=== PATIENT | female | born 2000 | race African-American/Black ===

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

== ENCOUNTER 2020-04-03 18:27 | Emergency (ER) | payer OTHER ==
--- NOTE | 2020-04-03 18:31 | PDOC ---
Rapid Medical Evaluation Time Seen by Provider: 04/03/20 18:30 Medical Evaluation: Allergies Allergy/AdvReac Type Severity Reaction Status Date / Time No Known Allergies Allergy Verified 09/26/19 16:52 04/03/20 18:30 Pt presents for a skin infection to the R side of her neck. Pt reports getting a new tattoo on Thursday. Exam: hives present under the tattoo, streaking noted distally. Afebrile Orders: defer to provider Pt to proceed to the ER for further evaluation Discharge Disposition - Diagnosis Skin infection - Referrals - Patient Instructions - Post Discharge Activity
[2020-04-03 18:33] VITALS: BP 126/74; PULSE 85; TEMP 98.3; BMI 28.3
[2020-04-03] MEDS ORDERED: CEPHALEXIN MONOHYDRATE 500 MG CAPSULE (UD) PO ONE (19:19)
--- NOTE | 2020-04-03 19:23 | PDOC ---
History of Present Illness - General Chief Complaint: Redness To Affected Area Stated Complaint: SKIN INFECTION Time Seen by Provider: 04/03/20 18:30 History Source: Patient Exam Limitations: No Limitations - History of Present Illness Initial Comments: 04/03/20 19:23 HISTORY OF PRESENT ILLNESS: 19-year-old girl presents emergency department for evaluation of right neck irritation after tattoo placed 3 days ago. Patient reports has been using "tattoo goo" for barrier protection after receiving the tattoo. Patient is concerned that she has itching, redness and a slight burning sensation surrounding the new tattoo. She denies any fevers, chills, shortness of breath, vocal changes, difficulty swallowing. No recent travel or sick contacts. PAST MEDICAL HISTORY: Denies past medical history SURGICAL HISTORY: Denies ALLERGIES: No known drug allergies REVIEW OF SYSTEMS General/Constitutional: Denies fever or chills. Denies weakness, weight change. HEENT: Denies change in vision. Denies ear pain or discharge. Denies sore throat. Cardiovascular: Denies chest pain or shortness of breath. Respiratory: Denies cough, wheezing, or hemoptysis. Gastrointestinal: Denies nausea, vomiting, diarrhea or constipation. Denies rectal bleeding. Genitourinary: Denies dysuria, frequency, or change in urination. Musculoskeletal: Denies joint or muscle swelling or pain. Denies neck or back pain. Skin and breasts: See HPI Neurologic: Denies headache, vertigo, loss of consciousness, or loss of sensation. Psychiatric: Denies depression or anxiety. Endocrine: Denies increased thirst. Denies abnormal weight change. Hematologic/Lymphatic: Denies anemia, easy bleeding, or history of blood clots. Allergic/Immunologic: Denies hives or skin allergy. Denies latex allergy. PHYSICAL EXAM General Appearance: Well-appearing, appropriately dressed. No apparent distress, no intoxication. HEENT: EOMI, PERRLA, normal ENT inspection, normal voice, TMs normal, pharynx normal. No conjunctival pallor. No photophobia, scleral icterus. Neck: Supple. Trachea midline. No tenderness, rigidity, carotid bruit, stridor, lymphadenopathy, or thyromegaly. Pruritic pink swelling present surrounding tattoo to the right lateral neck. Erythematous borders are irregular and raised. Erythematous areas extends approximately 1 cm around the tattoo in all directions. Respiratory/Chest: Lungs CTAB. No shortness of breath, chest tenderness, respiratory distress, accessory muscle use. No crackles, rales, rhonchi, stridor, wheezing, dullness Integumentary: See neck assessment. Neurologic: finance mgr II-XII intact. Fully oriented, alert. Appropriate mood/affect. Motor strength 5/5. No appreciable EOM palsy, facial droop or sensory deficit. Past History - Medical History Allergies/Adverse Reactions: Allergies Allergy/AdvReac Type Severity Reaction Status Date / Time No Known Allergies Allergy Verified 09/26/19 16:52 Home Medications: Ambulatory Orders No Home Medications 0 dose .ROUTE UTDICT 12/03/13 Cephalexin Monohydrate [Keflex -] 500 mg PO Q6H #28 capsule 04/03/20 COPD: No - Immunization History Immunization Up to Date: Yes - Psycho-Social/Smoking History Smoking History: Never smoked - Substance Abuse Hx (Audit-C & DAST Scrn) How often the patient has a drink containing alcohol: Never Score: In Men: 4 or > Positive; In Women: 3 or > Positive: 0 Screen Result (Pos requires Nsg. Audit-10AR): Negative *Physical Exam - Vital Signs Last Vital Signs Temp Pulse Resp BP Pulse Ox 98.3 F 85 20 126/74 100 04/03/20 18:30 04/03/20 18:30 04/03/20 18:30 04/03/20 18:30 04/03/20 18:30 Medical Decision Making - Medical Decision Making 04/03/20 19:20 A/P: 18-year-old girl with irritated skin to the neck over recently placed tattoo Swelling and erythema presents underlying right neck tattoo extending beyond the borders of the tattoo approximately 1 cm in all directions. Erythematous area is blanchable. Borders are irregular. Questionable whether this is allergy versus infectious. I will treat for both. Patient is aware of [id number] remedies for allergy. Prescription for Keflex 500 4 times daily sent to patient's preferred pharmacy. I discussed the physical exam findings, ancillary test results and final diagnoses with the patient. I answered all of the patient's questions. The patient was satisfied with the care received and felt comfortable with the discharge plan and treatment plan. The patient will call their primary care physician within 24 hours to arrange follow-up and will return to the Emergency Department with any new, persistent or worsening symptoms. Portions of this note have been documented using voice recognition software. As a result, errors may occur in the insurance claims analyst process. Effort has been made to correct all grammatical and insurance claims analyst error, but some may have been missed which may produce sporadic inaccurate insurance claims analyst or nonsensical phrases. Discharge - Discharge Information Problems reviewed: Yes Clinical Impression/Diagnosis: Cellulitis Qualifiers: Site of cellulitis: neck Qualified Code(s): L03.221 - Cellulitis of neck Condition: Stable Disposition: HOME - Admission No - Additional Discharge Information Prescriptions: Cephalexin Monohydrate [Keflex -] 500 mg PO Q6H #28 capsule - Follow up/Referral - Patient Discharge Instructions Additional Instructions: Take Keflex 500 mg 4 times a day for the next 7 days Finish all antibiotics even if you feel better. Apply warm compresses to affected areas as needed. Return to emergency department for any worsening pain, drainage, hearing loss, or any other concerns. Thank you very much for choosing us to provide your emergent health care needs. - Post Discharge Activity
[2020-04-03] MEDS ORDERED: CEPHALEXIN MONOHYDRATE 500 MG CAPSULE (UD) ONE (19:26)
== END 2020-04-03 19:31 | disposition home or self-care (01) ==
LOC: JERFT 18:27 → JER 18:27 → JERFT 19:31
DX: L03.221 Cellulitis of neck (principal)
CPT/HCPCS: 99284-25

== ENCOUNTER 2020-11-12 17:27 | Emergency (ER) | payer OTHER ==
[2020-11-12 18:10] VITALS: BP 180/77; PULSE 86; TEMP 97.9; BMI 29.2
== END 2020-11-12 19:30 | disposition home or self-care (01) ==
LOC: JERFT 17:27 → JER 17:27 → JERFT 19:30
DX: R07.9 Chest pain, unspecified (principal); U07.1 COVID-19
CPT/HCPCS: 71046-TC-FY; 93005; 93010; 99284-25; C9803; U0003

== ENCOUNTER 2021-08-27 15:18 | Emergency (ER) | payer OTHER ==
[2021-08-27 15:38] VITALS: BP 119/79; PULSE 80; TEMP 98.2; BMI 34.3
[2021-08-27 17:07] LABS: HCG,QUALITATIVE URINE Negative
[2021-08-27 17:55] LABS: URINE APPEARANCE CLEAR; URINE BILIRUBIN NEGATIVE (NEGATIVE); URINE COLOR YELLOW; URINE GLUCOSE (UA) NEGATIVE (NEGATIVE); URINE KETONE TRACE (NEGATIVE); URINE LEUK ESTERASE NEGATIVE (NEGATIVE); URINE NITRITE NEGATIVE (NEGATIVE); URINE PROTEIN NEGATIVE (NEGATIVE); URINE UROBILINOGEN 0.2 mg/dL (0.2-1.0)
== END 2021-08-27 19:23 | disposition home or self-care (01) ==
LOC: JER 15:18
DX: R10.30 Lower abdominal pain, unspecified (principal)
CPT/HCPCS: 36415; 76830-TC; 81003; 84703; 87491; 87591; 99284-25

== ENCOUNTER 2022-12-10 15:45 | Emergency (ER) | payer OTHER ==
[2022-12-10 15:54] VITALS: BP 125/70; PULSE 99; RESP 18; TEMP 98.5; BMI 39.7
[2022-12-10] MEDS ORDERED: DEXAMETHASONE SOD PHOSPHATE 10 MG/1 ML VIAL IM ONE (17:47)
[2022-12-10] MEDS ORDERED: LORATADINE 10 MG TABLET PO ONE (17:47)
[2022-12-10] MEDS ORDERED: LORATADINE 10 MG TABLET ONE (17:57)
[2022-12-10] MEDS ORDERED: DEXAMETHASONE SOD PHOSPHATE 10 MG/1 ML VIAL ONE (17:57)
[2022-12-10 18:04] LABS: PH,URINE 6.5 (5.0-8.0); URINE APPEARANCE CLEAR; URINE BILIRUBIN NEGATIVE (NEGATIVE); URINE COLOR YELLOW; URINE GLUCOSE (UA) NEGATIVE (NEGATIVE); URINE KETONE NEGATIVE (NEGATIVE); URINE LEUK ESTERASE NEGATIVE (NEGATIVE); URINE NITRITE NEGATIVE (NEGATIVE); URINE PROTEIN NEGATIVE (NEGATIVE); URINE UROBILINOGEN 0.2 mg/dL (0.2-1.0)
== END 2022-12-10 18:17 | disposition home or self-care (01) ==
LOC: JERFT 15:45 → JER 15:45 → JERFT 18:17
PROC: 3E023GC Introduction of Other Therapeutic Substance into Muscle, Percutaneous Approach (ICD-10-PCS; principal; 2022-12-10)
DX: J30.2 Other seasonal allergic rhinitis (principal); J39.2 Other diseases of pharynx; R07.0 Pain in throat; R05.8 Other specified cough; R06.7 Sneezing; Z20.822 Contact with and (suspected) exposure to COVID-19
CPT/HCPCS: 36415; 71046-TC-FY; 81003; 87086; 87491; 87591; 87651; 99284-25; J1100

== ENCOUNTER 2023-01-22 20:15 | Emergency (ER) | payer OTHER ==
[2023-01-22 20:24] VITALS: BP 131/65; PULSE 84; RESP 18; TEMP 98.3; BMI 38.9
[2023-01-22] MEDS ORDERED: ACETAMINOPHEN 325 MG TABLET (FP) PO ONE (21:04)
[2023-01-22] MEDS ORDERED: ACETAMINOPHEN 325 MG TABLET (FP) ONE (21:06)
== END 2023-01-22 21:27 | disposition home or self-care (01) ==
LOC: JERFT 20:15
DX: R05.1 Acute cough (principal); J34.89 Other specified disorders of nose and nasal sinuses; J02.9 Acute pharyngitis, unspecified; Z20.822 Contact with and (suspected) exposure to COVID-19
CPT/HCPCS: 0241U-QW; 87070; 99283-25

== ENCOUNTER 2023-06-12 22:02 | Emergency (ER) | payer OTHER ==
[2023-06-12 22:17] VITALS: BP 131/65; PULSE 105; RESP 20; TEMP 99.3; BMI 39.4
[2023-06-12 22:43] LABS: THROAT:GRP A STREP DETECTED (NOTDETECTED)
[2023-06-12] MEDS ORDERED: DEXAMETHASONE SOD PHOSPHATE 10 MG/1 ML VIAL IM ONE (23:03)
[2023-06-12] MEDS ORDERED: IBUPROFEN 400 MG TABLET (FP) PO ONE ×2 (23:04→23:07)
[2023-06-12] MEDS ORDERED: DEXAMETHASONE SOD PHOSPHATE 10 MG/1 ML VIAL ONE (23:08)
[2023-06-12] MEDS ORDERED: KETOROLAC TROMETHAMINE 30 MG/1 ML VIAL IM ONE (23:12)
[2023-06-12] MEDS ORDERED: KETOROLAC TROMETHAMINE 30 MG/1 ML VIAL ONE (23:14)
[2023-06-12] MEDS ORDERED: AMOX TR/POT CLAV 875MG/125MG TABLETS (FP) PO ONE (23:25)
[2023-06-12] MEDS ORDERED: AMOX TR/POT CLAV 875MG/125MG TABLETS (FP) ONE (23:27)
== END 2023-06-12 23:36 | disposition home or self-care (01) ==
LOC: JER 22:02
PROC: 3E0233Z Introduction of Anti-inflammatory into Muscle, Percutaneous Approach (ICD-10-PCS; principal; 2023-06-12)
PROC: 3E023GC Introduction of Other Therapeutic Substance into Muscle, Percutaneous Approach (ICD-10-PCS; 2023-06-12)
DX: R68.83 Chills (without fever) (principal); J02.0 Streptococcal pharyngitis; M79.10 Myalgia, unspecified site; R61 Generalized hyperhidrosis; R07.0 Pain in throat; R13.10 Dysphagia, unspecified; R00.0 Tachycardia, unspecified
CPT/HCPCS: 0241U-QW; 87651; 99284-25; J1100

== ENCOUNTER 2024-01-17 19:25 | Emergency (ER) | payer OTHER ==
[2024-01-17 19:43] VITALS: BP 138/71; PULSE 92; RESP 18; TEMP 97.3; BMI 40.4
[2024-01-17] MEDS: ERYTHROMYCIN 0.5% OPHTHALMIC OINTMENT 3.5 GM TUBE OS ONE (20:20)
[2024-01-17] MEDS ORDERED: ERYTHROMYCIN 0.5% OPHTHALMIC OINTMENT 3.5 GM TUBE ONE (20:22)
[2024-01-17] MEDS ORDERED: ERYTHROMYCIN 0.5% OPHTHALMIC OINTMENT 3.5 GM TUBE OS SCH (20:30)
[2024-01-17 21:53] LABS: HIV INTERPRETATION NEGATIVE (NEGATIVE)
== END 2024-01-17 20:39 | disposition home or self-care (01) ==
LOC: JERFT 19:25
DX: H10.9 Unspecified conjunctivitis (principal); J06.9 Acute upper respiratory infection, unspecified; R09.81 Nasal congestion; Z20.822 Contact with and (suspected) exposure to COVID-19
CPT/HCPCS: 0241U-QW; 36415; 87389; 87491; 87591; 99283-25

== ENCOUNTER 2024-09-10 02:20 | Emergency (ER) | payer OTHER ==
[2024-09-10 02:26] VITALS: BP 120/70; PULSE 80; RESP 18; TEMP 98.6; BMI 41.3
[2024-09-10 04:46] LABS: HCG,QUALITATIVE URINE Negative
[2024-09-10 04:51] LABS: EPI CELLS 10 /uL (0-25.1); HYALINE CASTS 0 /uL (0-3.1); PH,URINE 6.5 (5.0-8.0); URINE APPEARANCE CLEAR; URINE BACTERIA 162 /uL (0-1359); URINE BILIRUBIN NEGATIVE (NEGATIVE); URINE COLOR YELLOW; URINE GLUCOSE (UA) NEGATIVE (NEGATIVE); URINE KETONE NEGATIVE (NEGATIVE); URINE LEUK ESTERASE 2+ (NEGATIVE); URINE NITRITE NEGATIVE (NEGATIVE); URINE PROTEIN NEGATIVE (NEGATIVE); URINE RBC 13 /uL (0-23.9); URINE WBC 121 /uL (0-25.8)
[2024-09-10] MEDS ORDERED: AZITHROMYCIN 500 MG TABLET ONE (05:25)
[2024-09-10] MEDS: AZITHROMYCIN 500 MG TABLET PO ONE (05:26)
[2024-09-10 06:21] LABS: HIV INTERPRETATION NEGATIVE (NEGATIVE)
== END 2024-09-10 06:18 | disposition home or self-care (01) ==
LOC: JER 02:20
DX: L29.2 Pruritus vulvae (principal); N89.8 Other specified noninflammatory disorders of vagina; R05.9 Cough, unspecified; Z20.822 Contact with and (suspected) exposure to COVID-19
CPT/HCPCS: 0241U-QW; 36415; 71046-TC-FY; 81003; 84703; 86803; 87081; 87086; 87389; 87491; 87591; 87661; 99284-25